=== PATIENT | male | born 2000 | race Caucasian/White ===

== ENCOUNTER 2022-11-15 20:40 | Emergency (ER) | payer BC ==
[~2022-11-15] VITALS: Ht 177.8 cm; Wt 186.4 kg
[2022-11-15 20:43] VITALS: BP 168/103; TEMP 98.1
[2022-11-15 23:40] VITALS: PULSE 109
== END 2022-11-15 23:40 | disposition home or self-care (01) ==
LOC: COL.ER 20:40
DX: S93.401A Sprain of unspecified ligament of right ankle, initial encounter (principal); E66.9 Obesity, unspecified; Z68.43 Body mass index [BMI] 50.0-59.9, adult; X50.1XXA Overexertion from prolonged static or awkward postures, initial encounter